=== PATIENT | male | born 1965 | race Two or more races ===

== ENCOUNTER 2025-01-21 08:28 | Inpatient (IN) | payer BC, MEDICAID, SELFPAY ==
[2025-01-21] VITALS (9 sets, daily range): BP systolic 118–153; BP diastolic 63–93; PULSE 69–93; RESP 16–97; TEMP 36.1–37.2; O2SAT 94–99; BMI 46.0; BMI 46.3
--- NOTE | 2025-01-21 08:53 | XR_ITS ---
Examination: Foot, left, 3 views Technique: AP, oblique, lateral views foot, 3 views Date and time of exam: January 21, 2025, 0901 hours INDICATIONS: Nonhealing wound first digit 4 months, diabetes history. FINDINGS: Prominent bone destruction involving the entire distal phalanx first digit No fracture No foreign body IMPRESSION: Prominent osteomyelitis distal phalanx first digit
--- NOTE | 2025-01-21 08:54 | PD.EDRME ---
Rapid Medical Screening Exam RME Arrival date/time: 01/21/25 08:28 59-year-old male presents to the emergency dept today stating that he was seen by podiatry and was referred to the ER for osteomyelitis Patient had outpatient x-ray which showed osteomyelitis and patient been antibiotics which are not helping his infection Chief Complaint: Ankle/Foot Injury Time Seen by Provider: 01/21/25 08:39 Vital signs: Vital Signs Temperature 98.5 F 01/21/25 08:51 Pulse Rate 93 01/21/25 08:51 Respiratory Rate 19 01/21/25 08:51 Blood Pressure 153/84 H 01/21/25 08:51 Pulse Oximetry (%) 99 01/21/25 08:51 Oxygen Delivery Method Room Air 01/21/25 08:51 Vital signs reviewed by provider: Yes Exam: tender swelling left great toe Clinical Impression: Lab work and imaging ordered
[2025-01-21 09:27] LABS: Lactate (Lactic Acid) 1.0 mMol/L (0.4-2.0)
[2025-01-21 09:35] LABS: Basophils # (Auto) 0.0 Thou/mm3 (0.0-0.2); Basophils % (Auto) 0 % (0-2.5); Eosinophils # (Auto) 0.1 Thou/mm3 (0.0-0.5); Eosinophils % (Auto) 2 % (0-10); Hematocrit 45.9 % (41.0-53.0); Hemoglobin 15.1 g/dL (13.5-16.0); Immature Granulocytes Auto 0.01 Thou/mm3 (0.00-0.00); Lymphocytes # (Auto) 2.2 Thou/mm3 (1.0-4.8); Lymphocytes % (Auto) 34 % (10-50); Mean Corpuscular HGB Conc 32.9 g/dl (31.0-37.0); Mean Corpuscular Hemoglobin 30.6 pg (25.0-35.0); Mean Corpuscular Volume 93 fL (80-100); Monocytes # (Auto) 0.5 Thou/mm3 (0.0-0.8); Monocytes % (Auto) 8 % (0-12); Neutrophils # (Auto) 3.6 Thou/mm3 (1.8-7.7); Neutrophils % (Auto) 56 % (37-80); Nucleated Red Blood Cell # 0.00 Thou/mm3 (0.00-0.00); Nucleated Red Blood Cell % 0 /100 WBC (0); Platelet Count 198 Thou/mm3 (140-440); RDW Standard Deviation 43.8 fL (35.1-43.9); Red Blood Count 4.94 Miln/mm3 (4.50-5.90); White Blood Count 6.4 Thou/mm3 (3.8-10.6)
[2025-01-21 09:46] LABS: INR 1.0 (0.9-1.3); Partial Thromboplastin Time 26.7 Seconds (22.0-36.0); Prothrombin Time 11.0 Seconds (9.0-12.2)
[2025-01-21 09:55] LABS: Alanine Aminotransferase 24 U/L (10-49); Albumin, Serum 4.4 gm/dL (3.5-5.0); Albumin/Globulin Ratio 1.2 (1.2-2.2); Alkaline Phosphatase 71 U/L (46-116); Anion Gap 6 (7-16); Aspartate Amino Transferase 24 U/L (0-34); BUN/Creatinine Ratio 16 Ratio (12-20); Bilirubin,Total 0.4 mg/dL (0.3-1.2); Blood Urea Nitrogen 13 mg/dL (9-23); C-Reactive Protein < 0.5 mg/dL (0.0-0.9); Calcium 9.0 mg/dL (8.3-10.6); Calcium (Corrected) 9.0 mg/dL (8.5-10.1); Carbon Dioxide 27.7 mMol/L (20.0-31.0); Chloride 104 mMol/L (98-107); Creatinine (Component) 0.8 mg/dL (0.6-1.3); Estimated Creatinine Clearance 143.4 mL/min (>60); Globulin 3.7 gm/dL (2.3-3.5); Glucose 219 mg/dL (74-106); Osmolality,Calculated 282 (275-295); Potassium 4.2 mMol/L (3.4-5.1); Sodium 138 mMol/L (136-145); Total Protein 8.1 gm/dL (5.7-8.2); eGFR > 60 See Note
[2025-01-21 09:56] LABS: Procalcitonin < 0.04 ng/ml (0.0-0.49)
[2025-01-21 10:01] LABS: Sed Rate (ESR) 30 mm/hr (0-20)
--- NOTE | 2025-01-21 10:19 | PC.NURSE ---
Patient came in to ED after being advice by his wound doctor to come to the hospital to start IV antibiotics. Pt's left great toe has dressing, which was removed, toe is swollen, small macerated spot on posterior toe noted. Pt denies any pain to foot stated that he is able to bear weight to foot. Problem with toe started around August after pt had fungus to toe nail. Pt awaiting doctor for evaluation.
--- NOTE | 2025-01-21 11:48 | EDNOTE_ITS ---
ED Skin Abcess FB-RME/HPI General Chief complaint: Ankle/Foot Injury Stated complaint: Dr. Dumas sent pt. for infected toe Time Seen by Provider: 01/21/25 08:39 Arrival date/time: 01/21/25 08:28 Limitations: no limitations RME / HPI RME / HPI narrative: 01/21/25 08:28 59-year-old male presents to the emergency dept today stating that he was seen by podiatry and was referred to the ER for osteomyelitis Patient had outpatient x-ray which showed osteomyelitis and patient been antibiotics which are not helping his infection DR. RITA MATT ED EVALUATION: 59-year-old male with past medical history significant for diabetes and hypertension accompanied by his mother presents to the Emergency Department after being sent in by his data communications technician, Dr. Dumas, for admission. He has swell ing of the first digit of the left foot involving the ventral surface of the toe, ongoing since August 2024. Last dose of antibiotics was taken Thursday or Thursday; oral antibiotics are not helping. He denies nausea or vomiting. No known allergies. No other symptoms reported. No fevers,chills Related Data Previous Rx's ?Medication ?Instructions ?Recorded albuterol sulfate 90 mcg/actuation 2 puff inhalation Q 4HR PRN dyspnea 01/19/17 aerosol inhaler (ProAir HFA) #1 inh inhalational spacing device #1 ea 01/19/17 (Aerochamber with Flowsignal) benzonatate 100 mg capsule 100 mg PO TID PRN cough #30 caps 06/03/20 (Tessalon Perles) azithromycin 250 mg tablet See Rx Instructions PO .COM PLEX #6 09/15/23 (Zithromax Z-Quique) tabs Allergies Allergy/AdvReac Type Severity Reaction Status Date / Time No Known Allergies Allergy Unverified 01/21/25 11:58 Review of Systems Review of Systems Systems Reviewed: All systems reviewed, normal except as documented Past Medical History Past Medical History CARDIAC: Positive Hypercholesterolemia and Hypertension RESPIRATORY: Positive Bronchitis MUSCULOSKELETAL: Positive Osteomyelitis ENDOCRINE: Positive Diabetes Mellitus Type 2 Social History SMOKING STATUS: Never smoker SUBSTANCE USE: does not use ALCOHOL: Never ED Exam General Limitations: Present no limitations General appearance: Present alert and in no apparent distress Head Head exam: Present atraumatic, normocephalic and normal inspection Eye Eye exam: Present normal appearance, PERRL and EOMI ENT ENT exam: Present normal exam, normal oropharynx and mucous membranes moist Neck Neck exam: Present normal inspection, full ROM and trachea midline Chest Chest inspection: Present normal inspection and symmetric chest wall rise Respiratory Respiratory exam: Present normal lung sounds bilaterally Cardiovascular Cardiovascular exam: Present regular rate, normal rhythm and normal heart sounds Abdominal Exam Abdominal exam: Present soft; Absent distention or tenderness Extremities Exam Extremities exam: Present full ROM and other (left first toe swollen with a 4 mm wound on the plantar surface, no erythema/fluctuance/crepitus present, and patient reports no pain) Neurological Exam Neurological exam: Present alert, oriented X3 and CN II-XII intact Psychiatric Psychiatric exam: Present normal affect and normal mood Skin Skin exam: Present warm, dry and normal color (normal color except findings on left first toe as described) Course Quality Measures none Orders Category Date Time Status XR foot comp LT min 3V Stat Exams 01/21/25 08:53 Completed Blood Culture (Lab) Stat Lab 01/21/25 09:15 Received CBC Stat Lab 01/21/25 09:20 Completed CMP [Comprehensive Metabolic Panel] Stat Lab 01/21/25 09:20 Completed CRP [C-Reactive Protein] Stat Lab 01/21/25 09:20 Completed ESR [Sed Rate (ESR)] Stat Lab 01/21/25 09:20 Completed Lactic Acid [Lactate (Lactic Acid)] Stat Lab 01/21/25 09:20 Completed PT [Prothrombin Time with INR] Stat Lab 01/21/25 09:20 Completed PTT [Partial Thromboplastin Time] Stat Lab 01/21/25 09:20 Completed Procalcitonin Stat Lab 01/21/25 09:20 Completed Piper/Tazo Inj [Zosyn Inj] 4.5 gm Med 01/21/25 11:49 Discontinued Sodium Chloride 0.9% (Pop) [NS 0.9% mini bag] 100 ml IV X1 Vancomycin Inj 2,000 mg Med 01/21/25 12:00 Discontinued Sodium Chloride 0.9% 500 ml [Ns] 500 ml IV X1 Vancomycin Pharmacy to Dose Med 01/21/25 11:49 Discontinued 1 each IV X1 PRN Vital Signs Vital signs: Vital Signs Temperature 98.5 F 01/21/25 08:51 Pulse Rate 93 01/21/25 08:51 Respiratory Rate 19 01/21/25 08:51 Blood Pressure 153/84 H 11/22/25 08:51 Pulse Oximetry (%) 99 01/21/25 08:51 Oxygen Delivery Method Room Air 01/21/25 08:51 Skin / Abscess / Foreign Body [facility] Narrative MDM Narrative:: INinfa am scribing for and in the presence of Dr. Acosta. 59-year-old male sent by podiatry for foot evaluation and likely admission. Left first toe swollen since August with recent antibiotic use. Concern for failure of outpatient treatment .concern for osteomyelitis, nonhealing diabetic foot ulcer, among others. Patient nonseptic nontoxic. No evidence of necrotizing skin infection. Provided patient with broad-spectrum antibiotics, ordered labs and blood cultures. Labs with elevated ESR. X-ray of the foot with evidence of osteomyelitis. Consult hospital team kindly accepted patient for admission. Patient data External records reviewed:: [facility] previous records Clinical information provided by:: patient and parent Social determinants that could affect healthcare access:: none Patient has the following chronic illnesses:: History of diabetes and hypertension. How is presenting disease/condition affected by chronic disease/condition?: exacerbated by Evaluation data The following diagnostics were reviewed and interpreted by me:: lab results and radiology exam(s) Lab and/or radiology exams considered but not ordered:: none Interpretation Summary: See MDM narrative above. RADIOLOGY Procedure(s): XR foot comp LT min 3V Accession Number(s): [id number] cc: Ijeoma (CURTIS),Stanley ACEVEDO; Tarun Sepulveda MD; Alfonso Jiang MD~ Examination: Foot, left, 3 views Technique: AP, oblique, lateral views foot, 3 views Date and time of exam: January 21, 2025, 0901 hours INDICATIONS: Nonhealing wound first digit 4 months, diabetes history. FINDINGS: Prominent bone destruction involving the entire distal phalanx first digit No fracture No foreign body IMPRESSION: Prominent osteomyelitis distal phalanx first digit Dictated By: Alfonso Jiang MD Medications / Prescriptions Medications or Prescriptions considered but not ordered:: none Medication administrations:: Medication Administration History Acetaminophen (Acetaminophen 325 Mg Tablet) 650 mg PO Q6H PRN PRN Reason: Fever >100.4 and pain 1-3 Stop: 02/20/25 12:28 Dextrose (Dextrose 50%-Water Inj 50 Ml Syringe) 25 ml IV Q15MIN PRN PRN Reason: BG 50-70 responsive npo pt Stop: 02/20/25 12:39 Dextrose (Dextrose 50%-Water Inj 50 Ml Syringe) 50 ml IV Q15MIN PRN PRN Reason: BG <50 OR BG <70 & pt unresponsive Stop: 02/20/25 12:39 Enoxaparin Sodium (Enoxaparin Sod Inj 40 Mg/0.4 Ml Syringe) 40 mg SC QDAY SUNIL Stop: 02/05/25 08:59 Glucagon (Glucagon Inj 1 Mg Vial) 1 mg IM Q15MIN PRN PRN Reason: BG <70, and no IV access Vancomycin/Sodium Chloride (Vancomycin/Ns 1 Gm Ivpb) 200 mls @ 120 mls/hr IV Q2H SUNIL Stop: 01/21/25 16:39 Last Admin: 01/21/25 13:07 Dose: 120 mls/hr Documented By: EMILE Piperacillin/Tazobactam/Dextrose (Zosyn) 3.375 gm in 50 mls @ 12.5 mls/hr IV Q8HR [facility]; Protocol Stop: 01/28/25 21:59 Vancomycin HCl/Dextrose (Vancomycin/D5w 1,250 Mg Ivpb) 250 mls @ 120 mls/hr IV Q8HR SUNIL Stop: 01/28/25 21:59 Insulin Human Lispro (Insulin Lispro (Admelog) 1 Unit/0.01 Ml Unit) 0 unit SC AC [facility]; Protocol Stop: 02/20/25 16:59 Ondansetron HCl (Ondansetron Inj 2 Mg/Ml Inj 2 Ml) 4 mg IVP Q6H PRN; Protocol PRN Reason: NAUSEA OR VOMITING Stop: 02/20/25 12:28 Oxycodone/Acetaminophen (Oxycodone/Apap 5/325 Tablet) 1 tab PO Q6H PRN PRN Reason: PAIN SCALE 4-10(Mod-Sev Stop: 01/26/25 12:28 Pantoprazole Sodium (Pantoprazole 40 Mg Tablet) 40 mg PO QDAY SUNIL Stop: 02/21/25 08:59 Pharmacy Consult (Vancomycin Pharmacy To Dose 1 Each Each) 1 each IV QDAY PRN PRN Reason: PROTOCOL Stop: 02/21/25 08:59 Sennosides (Senna Tablet) 1 tab PO QDAY PRN; Protocol PRN Reason: constipation Stop: 02/20/25 12:28 Discontinued Medications Piperacillin Sod/Tazobactam (Sod 4.5 gm/ Sodium Chloride) 100 mls @ 200 mls/hr IV X1 ONE; Protocol Stop: 01/21/25 12:18 Last Admin: 01/21/25 12:17 Dose: 200 mls/hr Documented By: KALPESH Vancomycin HCl 2,000 mg/ (Sodium Chloride) 500 mls @ 150 mls/hr IV X1 ONE Stop: 01/21/25 15:19 Insulin Human Lispro (Insulin Lispro (Admelog) 1 Unit/0.01 Ml Unit) 0 unit SC AC SUNIL; Protocol Stop: 02/20/25 16:59 Insulin Human Lispro (Insulin Lispro (Admelog) 1 Unit/0.01 Ml Unit) 0 unit SC AC SUNIL; Protocol Stop: 02/20/25 16:59 Pharmacy Consult (Vancomycin Pharmacy To Dose 1 Each Each) 1 each IV X1 PRN PRN Reason: PROTOCOL Stop: 01/21/25 12:10 see above Consultations Consultation(s) initiated? (list below): Yes Consultation #1 (Physician, Specialty, Details): Discussed test HPI, PMHx, lab, radiology results and/or management with resident working with the hospitalist. Will admit for further evaluation and management. Accepts patient for admission. Time: 12:10 Diagnosis Skin/Abscess Differential Diagnosis: other (cellulitis, osteomyelitis, and di abetic foot infection) Most likely diagnosis given after review of the tests above:: Osteomyelitis , failure of outpatient treatment Admission Indicated Admission indicated?: not indicated Admission Request Was there a request for admission?: Yes Admission Attestation Admission request attestation: Discussed case with Team B from Hospitalist service regarding admission. Discussed patients ED course, exam findings, labs, and radiology results. The Hospitalist [agrees] to accept the patient for admission. Disposition Plan Disposition Plan: Admit Critical Care Time Critical Care Time Critical Care Time: Yes Total Critical Care Time (min.): 36 Attestation: Total critical care time: Approximately?36?minutes Due to a high probability of clinically significant, life threatening deterioration, the patient required my highest level of preparedness to intervene emergently and I personally spent this critical care time directly and personally managing the patient. This critical care time included obtaining a history; examining the patient; pulse oximetry; ordering and review of studies; arranging urgent treatment with development of a management plan; evaluation of patient's response to treatment; frequent reassessment; and, discussions with other providers. This critical care time was performed to assess and manage the high probability of imminent, life-threatening deterioration that could result in multi-organ failure. It was exclusive of separately billable procedures and treating other patients and teaching time. Please see MDM section and the rest of the note for further information on patient assessment and treatment. Discharge Plan Plan Patient Disposition: Admit Acute Care w/in Hospital Problem List Clinical Impression: Osteomyelitis
[2025-01-21] MEDS: PIPER/TAZO INJ 4.5 GM in SODIUM CHLORIDE 0.9% (POP) 100 ML IV (12:17)
--- NOTE | 2025-01-21 12:46 | ESHP_ITS ---
<Statement entered by Jeremiah Lindsey MD - 01/21/25 17:53> Patient seen and examined at bedside. I discussed and supervised with the technology internship physician who took care of this patient. I personally saw and examined the patient. I agree with most of the assessment and plan. Plan of care discussed with attending Dr. Salmeron. Jeremiah Lindsey MD PGY-2 Documentation for date of: 01/21/25 HPI History of Present Illness History of present illness: 59-year-old male with past medical history of diabetes, hypertension, hyperlipidemia presented from podiatry office for osteomyelitis found on outpatient x-ray. Admitted for osteomyelitis. Patient reported having foot infection since August/2024, following glassine machine tender outpatient for wound cleaning and antibiotics. Patient was started on Keflex on 12/30 and doxycycline on 01/09. The wound initially was swollen up to left lower extremity but has improved much better, now is only to his toe. However, still developed osteomyelitis after being on 2 antibiotics. Patient reported having fungal infection prior to his wound. Denied trauma, fever, chill, cough, chest pain. ED: Vital signs: 128/86 HR 79 RR 18 afebrile 98% RA Labs: WBC 6.4 ESR 30 glucose 219 HA1c 8.8. Pending blood culture Imaging: Foot x-ray showed prominent osteomyelitis of distal phalanx of first digit Meds: Vancomycin and Zosyn Review of Systems Review of Systems Systems Reviewed: All systems reviewed, normal except as documented Past Medical History Social History SMOKING STATUS: Never smoker SUBSTANCE USE: does not use ALCOHOL: Never Exam Vital Signs Temp Pulse Resp BP Pulse Ox O2 Del Method 97.7 F 82 18 150/93 H 97 Room Air 01/21/25 11:21 01/21/25 11:21 01/21/25 11:21 01/21/25 11:21 01/21/25 11:01/21/25 11:21 Narrative Exam GENERAL APPEARANCE: awake and oriented x 3, well-developed, well-nourished HEENT: Normocephalic, atraumatic; pupils equal, round, reactive to light; EOMI; mucous membranes pink, moist; oropharynx clear NECK: Supple, large neck circumference LUNGS: Clear to auscultation bilaterally, breath sound equal bilaterally HEART: Tachycardia; normal S1, S2; no murmur ABDOMEN: No tenderness to palpation; normal BS; soft, no guarding, no rebound. EXTREMITIES: Nonerythematous, edematous left first digit with mild purulent on the plantar side at the pin point lesion 1 mm in diameter. Mild purulent upon expressing, not tenderness. NEUROLOGIC: awake; alert and oriented x3; cranial nerves II-XII grossly intact; no focal sensory or motor deficits PSYCHIATRIC: appropriate mood and affect SKIN: warm, dry, normal color; no rashes Results: Labs 01/22/25 04:55 01/22/25 04:55 Labs: Short CBC 01/21/25 Range/Units 09:20 WBC 6.4 (3.8-10.6) Thou/mm3 Hgb 15.1 (13.5-16.0) g/dL Hct 45.9 (41.0-53.0) % Plt Count 198 (140-440) Thou/mm3 BMP 01/21/25 09:20 Sodium 138 Potassium 4.2 Chloride 104 Carbon Dioxide 27.7 BUN 13 Creatinine 0.8 Glucose 219 H Calcium 9.0 Liver Function 01/21/25 Range/Units 09:20 Total Bilirubin 0.4 (0.3-1.2) mg/dL AST 24 (0-34) U/L ALT 24 (10-49) U/L Alkaline Phosphatase 71 (46-116) U/L Albumin 4.4 (3.5-5.0) gm/dL Quality Measures Quality Measures VTE prophylaxis Medications Home Medications and Allergies Home Medications ?Medication ?Instructions ?Recorded ?Confirmed ?Type doxycycline hyclate 100 mg tablet 100 mg PO .TWICE 01/21/25 History Allergies Allergy/AdvReac Type Severity Reaction Status Date / Time No Known Allergies Allergy Unverified 01/21/25 11:58 Visit Medications Acetaminophen (Acetaminophen 325 Mg Tablet) 650 mg PO Q6H PRN PRN Reason: Fever >100.4 and pain 1-3 Stop: 02/20/25 12:28 Dextrose (Dextrose 50%-Water Inj 50 Ml Syringe) 25 ml IV Q15MIN PRN PRN Reason: BG 50-70 responsive npo pt Stop: 02/20/25 12:39 Dextrose (Dextrose 50%-Water Inj 50 Ml Syringe) 50 ml IV Q15MIN PRN PRN Reason: BG <50 OR BG <70 & pt unresponsive Stop: 02/20/25 12:39 Enoxaparin Sodium (Enoxaparin Sod Inj 40 Mg/0.4 Ml Syringe) 40 mg SC QDAY SUNIL Stop: 02/05/25 08:59 Glucagon (Glucagon Inj 1 Mg Vial) 1 mg IM Q15MIN PRN PRN Reason: BG <70, and no IV access Vancomycin HCl 2,000 mg/ (Sodium Chloride) 500 mls @ 150 mls/hr IV X1 ONE Stop: 01/21/25 15:19 Insulin Human Lispro (Insulin Lispro (Admelog) 1 Unit/0.01 Ml Unit) 0 unit SC AC SUNIL; Protocol Stop: 02/20/25 16:59 Insulin Human Lispro (Insulin Lispro (Admelog) 1 Unit/0.01 Ml Unit) 0 unit SC AC SUNIL; Protocol Stop: 02/20/25 16:59 Insulin Human Lispro (Insulin Lispro (Admelog) 1 Unit/0.01 Ml Unit) 0 unit SC AC SUNIL; Protocol Stop: 02/20/25 16:59 Ondansetron HCl (Ondansetron Inj 2 Mg/Ml Inj 2 Ml) 4 mg IVP Q6H PRN; Protocol PRN Reason: NAUSEA OR VOMITING Stop: 02/20/25 12:28 Oxycodone/Acetaminophen (Oxycodone/Apap 5/325 Tablet) 1 tab PO Q6H PRN PRN Reason: PAIN SCALE 4-10(Mod-Sev Stop: 01/26/25 12:28 Pantoprazole Sodium (Pantoprazole 40 Mg Tablet) 40 mg PO QDAY SUNIL Stop: 02/21/25 08:59 Sennosides (Senna Tablet) 1 tab PO QDAY PRN; Protocol PRN Reason: constipation Stop: 02/20/25 12:28 Discontinued Medications Piperacillin Sod/Tazobactam (Sod 4.5 gm/ Sodium Chloride) 100 mls @ 200 mls/hr IV X1 ONE; Protocol Stop: 01/21/25 12:18 Last Admin: 01/21/25 12:17 Dose: 200 mls/hr Pharmacy Consult (Vancomycin Pharmacy To Dose 1 Each Each) 1 each IV X1 PRN PRN Reason: PROTOCOL Stop: 01/21/25 12:10 Assessment & Plan Plan 59-year-old male with past medical history of diabetes, hypertension, hyperlipidemia presented from podiatry office for osteomyelitis found on outpatient x-ray. Admitted for osteomyelitis. #Osteomyelitis of left foot #Outpatient treatment failure Foot x-ray showed prominent osteomyelitis of distal phalanx of first digit. Patient reported having foot infection since August/2024, following glassine machine tender outpatient for wound cleaning and antibiotics. Patient was started on Keflex on 12/30 and doxycycline on 01/09. The wound initially was swollen up to left lower extremity but has improved much better, now is only to his toe. However, still developed osteomyelitis after being on 2 antibiotics. Patient reported having fungal infection prior to his wound. Denied trauma, fever, chill. Plan: -Pending blood culture -Consult ID, Dr. Manzo, appreciate rec. -Continue Zosyn, Vanc #Type 2 Diabetes HA1c 8.8 Plan: -Glucose check q6hr -SSI q4hr -Daily weight, Strict I&Os -Dietitian referral -Diet carb consistent diet Health Maintenance: Code status: Full DVT prophylaxis: Lovenox GI prophylaxis: None Diet: Carb consistent renal Wells: None Lines: PIV Supplemental O2: None Disposition: Tele bed Assessment and plan discussed with my attending physician Dr. Salmeron and Dr. Lindsey(PGY-2). Dr. De Dios (PGY-1) ? residential glazier Attending Provider Attestation/Addendum I have seen and examined the patient. I was physically present for the epstein portions of the services provided including history, physical exam, diagnosis, treatment plans and orders. I agree with assessment and plan of care as documented by residents. After examination of the patient and review of the clinical data I feel that this patient needs admission to the hospital for further treatment/evaluation. Even though this this note was carefully revised there may still be minor errors in superintendent geophysical laboratory due to voice recognition software. Sarah Salmeron MD
[2025-01-21] MEDS: VANCOMYCIN/NS 1 GM IVPB 200 ML IV ×2 (13:07→15:36)
[2025-01-21 13:50] LABS: Glucose Estimated Average 206 mg/dL (80-131); Hemoglobin A1C 8.8 % Hgb (4.8-6.0)
[2025-01-21] MEDS: VANCOMYCIN/D5W 1,250 MG IVPB 250 ML 120 MG IV (21:51)
[2025-01-21] MEDS: PIPER/TAZO 3.375 GM PREMIX 3.375 GM/50 ML BAG IV (22:55)
[2025-01-22] VITALS (7 sets, daily range): BP systolic 118–128; BP diastolic 78–87; PULSE 63–88; RESP 17–97; TEMP 36.1–36.6; O2SAT 93–96
[2025-01-22 05:50] LABS: Basophils # (Auto) 0.0 Thou/mm3 (0.0-0.2); Basophils % (Auto) 1 % (0-2.5); Eosinophils # (Auto) 0.2 Thou/mm3 (0.0-0.5); Eosinophils % (Auto) 3 % (0-10); Hematocrit 43.2 % (41.0-53.0); Hemoglobin 14.6 g/dL (13.5-16.0); Immature Granulocytes Auto 0.01 Thou/mm3 (0.00-0.00); Lymphocytes # (Auto) 2.0 Thou/mm3 (1.0-4.8); Lymphocytes % (Auto) 36 % (10-50); Mean Corpuscular HGB Conc 33.8 g/dl (31.0-37.0); Mean Corpuscular Hemoglobin 31.7 pg (25.0-35.0); Mean Corpuscular Volume 94 fL (80-100); Monocytes # (Auto) 0.6 Thou/mm3 (0.0-0.8); Monocytes % (Auto) 11 % (0-12); Neutrophils # (Auto) 2.8 Thou/mm3 (1.8-7.7); Neutrophils % (Auto) 50 % (37-80); Nucleated Red Blood Cell # 0.00 Thou/mm3 (0.00-0.00); Nucleated Red Blood Cell % 0 /100 WBC (0); Platelet Count 183 Thou/mm3 (140-440); RDW Standard Deviation 44.9 fL (35.1-43.9); Red Blood Count 4.61 Miln/mm3 (4.50-5.90); White Blood Count 5.6 Thou/mm3 (3.8-10.6)
[2025-01-22] MEDS: PIPER/TAZO 3.375 GM PREMIX 3.375 GM/50 ML BAG IV ×3 (05:51→21:31)
[2025-01-22] MEDS: VANCOMYCIN/D5W 1,250 MG IVPB 250 ML 120 MG IV ×3 (05:51→21:31)
[2025-01-22 06:15] LABS: Alanine Aminotransferase 19 U/L (10-49); Albumin, Serum 4.0 gm/dL (3.5-5.0); Albumin/Globulin Ratio 1.3 (1.2-2.2); Alkaline Phosphatase 59 U/L (46-116); Anion Gap 9 (7-16); Aspartate Amino Transferase 22 U/L (0-34); BUN/Creatinine Ratio 11 Ratio (12-20); Bilirubin,Total 0.7 mg/dL (0.3-1.2); Blood Urea Nitrogen 10 mg/dL (9-23); Calcium 8.7 mg/dL (8.3-10.6); Calcium (Corrected) 8.7 mg/dL (8.5-10.1); Carbon Dioxide 27.2 mMol/L (20.0-31.0); Chloride 103 mMol/L (98-107); Creatinine (Component) 0.9 mg/dL (0.6-1.3); Estimated Creatinine Clearance 128.1 mL/min (>60); Globulin 3.2 gm/dL (2.3-3.5); Glucose 179 mg/dL (74-106); Magnesium 1.9 mg/dL (1.6-2.6); Osmolality,Calculated 280 (275-295); Phosphorous 3.9 mg/dL (2.4-5.1); Potassium 3.9 mMol/L (3.4-5.1); Sodium 139 mMol/L (136-145); Total Protein 7.2 gm/dL (5.7-8.2); eGFR > 60 See Note
[2025-01-22] MEDS: INSULIN LISPRO (AdmeLOG) 1 UNIT/0.01 ML UNIT SC ×3 (07:42→17:12)
[2025-01-22] MEDS: ENOXAPARIN SOD INJ 40 MG/0.4 ML SYRINGE SC (08:42)
[2025-01-22] MEDS: PANTOPRAZOLE 40 MG TABLET PO (08:42)
--- NOTE | 2025-01-22 08:51 | ESPR_ITS ---
<Statement entered by Jeremiah Lindsey MD - 01/22/25 16:29> Patient seen and examined at bedside. I discussed and supervised with the internal grinder set up operator physician who took care of this patient. I personally saw and examined the patient. I agree with most of the assessment and plan. Plan of care discussed with attending Dr. Ding. Jeremiah Lindsey MD PGY-2 Documentation for date of: 01/22/25 Subjective Subjective Interval history: Patient felt well today. Wound care nurse applied dressing. Minimal purulent on dressing. ID, Dr. Manzo, consulted, will see patient on Thursday, appreciate recs. ?Blood culture 01/21 no growth to date. Currently on Vanc and Zosyn. Surgery, Dr. Pandey, consulted, appreciate recs. Pending arterial duplex US. Exam Vital Signs Temp Pulse Resp BP Pulse Ox O2 Del Method 97.0 F 84 19 128/80 95 Room Air 01/22/25 08:00 01/22/25 08:00 01/22/25 08:00 01/22/25 08:00 01/22/25 08:00 01/22/25 08:00 Narrative Exam GENERAL APPEARANCE: awake and oriented x 3, well-developed, well-nourished HEENT: Normocephalic, atraumatic; pupils equal, round, reactive to light; EOMI; mucous membranes pink, moist; oropharynx clear NECK: Supple, large neck circumference LUNGS: Clear to auscultation bilaterally, breath sound equal bilaterally HEART: Tachycardia; normal S1, S2; no murmur ABDOMEN: No tenderness to palpation; normal BS; soft, no guarding, no rebound. EXTREMITIES: Nonerythematous, edematous left first digit with mild purulent on the plantar side at the pin point lesion 1 mm in diameter. Mild purulent upon expressing, not tenderness. NEUROLOGIC: awake; alert and oriented x3; cranial nerves II-XII grossly intact; no focal sensory or motor deficits PSYCHIATRIC: appropriate mood and affect SKIN: warm, dry, normal color; no rashes Objective Labs 01/23/25 05:15 01/23/25 05:15 Labs: Laboratory Results - last 24 hr 01/21/25 01/22/25 09:20 04:55 WBC 6.4 5.6 RBC 4.94 4.61 Hgb 15.1 14.6 Hct 45.9 43.2 MCV 93 94 MCH 30.6 31.7 MCHC 32.9 33.8 RDW Std Deviation 43.8 44.9 H Plt Count 198 183 Neut % (Auto) 56 50 Lymph % (Auto) 34 36 [place] % (Auto) 8 11 Eos % (Auto) 2 3 Baso % (Auto) 0 1 Neut # (Auto) 3.6 2.8 Lymph # (Auto) 2.2 2.0 [place] # (Auto) 0.5 0.6 Eos # (Auto) 0.1 0.2 Baso # (Auto) 0.0 0.0 Immature Gran # (Auto) 0.01 H 0.01 H Absolute Nucleated RBC 0.00 0.00 Immature Gran % 0 0 Nucleated RBC % 0 0 ESR 30 H PT 11.0 INR 1.0 APTT 26.7 Sodium 138 139 Potassium 4.2 3.9 Chloride 104 103 Carbon Dioxide 27.7 27.2 Anion Gap 6 L 9 BUN 13 10 Creatinine 0.8 0.9 Estim Creat Clear Calc 143.4 128.1 eGFR > 60 > 60 BUN/Creatinine Ratio 16 11 L Glucose [address] Glu mg/dL 206 H Hemoglobin A1c 8.8 H Calculated Osmolality 282 280 Lactic Acid 1.0 Calcium 9.0 8.7 Corrected Calcium 9.0 8.7 Phosphorus 3.9 Magnesium 1.9 Total Bilirubin 0.4 0.7 AST 24 22 ALT 24 19 Alkaline Phosphatase 71 59 C-Reactive Prot, Quant < 0.5 Total Protein 8.1 7.2 Albumin 4.4 4.0 Globulin 3.7 H 3.2 Albumin/Globulin Ratio 1.2 1.3 Procalcitonin < 0.04 Quality Measures Quality Measures VTE prophylaxis Assessment & Plan Assessment Current Active Medications: Generic Name Dose Route Start Last Admin Trade Name Freq PRN Reason Stop Dose Admin Acetaminophen 650 mg 01/21/25 12:29 Acetaminophen 325 Mg Tablet PO 02/20/25 12:28 Q6H PRN Fever >100.4 and pain 1-3 Dextrose 25 ml 01/21/25 12:40 Dextrose 50%-Water Inj 50 Ml Syringe IV 02/20/25 12:39 Q15MIN PRN BG 50-70 responsive npo pt Dextrose 50 ml 01/21/25 12:40 Dextrose 50%-Water Inj 50 Ml Syringe IV 02/20/25 12:39 Q15MIN PRN BG <50 OR BG <70 & pt unresponsive Enoxaparin Sodium 40 mg 01/22/25 09:00 01/22/25 08:42 Enoxaparin Sod Inj 40 Mg/0.4 Ml Syringe SC 02/05/25 08:59 40 mg QDAY SUNIL Administration Glucagon 1 mg 01/21/25 12:40 Glucagon Inj 1 Mg Vial IM Q15MIN PRN BG <70, and no IV access Piperacillin/Tazobactam/Dextrose 3.375 gm in 50 mls @ 12.5 mls/hr 01/21/25 22:00 01/22/25 05:51 Zosyn IV 01/28/25 21:59 12.5 mls/hr Q8HR SUNIL Administration Protocol Vancomycin HCl/Dextrose 250 mls @ 120 mls/hr 01/21/25 22:00 01/22/25 05:51 Vancomycin/D5w 1,250 Mg Ivpb IV 01/28/25 21:59 120 mls/hr Q8HR SUNIL Administration Insulin Human Lispro 0 unit 01/21/25 17:00 01/22/25 07:42 Insulin Lispro (Admelog) 1 Unit/0.01 Ml Unit SC 02/20/25 16:59 1 unit AC SUNIL Administration Protocol Ondansetron HCl 4 mg 01/21/25 12:29 Ondansetron Inj 2 Mg/Ml Inj 2 Ml IVP 02/20/25 12:28 Q6H PRN NAUSEA OR VOMITING Protocol Oxycodone/Acetaminophen 1 tab 01/21/25 12:29 Oxycodone/Apap 5/325 Tablet PO 01/26/25 12:28 Q6H PRN PAIN SCALE 4-10(Mod-Sev Pantoprazole Sodium 40 mg 01/22/25 09:00 01/22/25 08:42 Pantoprazole 40 Mg Tablet PO 02/21/25 08:59 40 mg QDAY SUNIL Administration Pharmacy Consult 1 each 01/22/25 09:00 Vancomycin Pharmacy To Dose 1 Each Each IV 02/21/25 08:59 QDAY PRN PROTOCOL Sennosides 1 tab 01/21/25 12:29 Senna Tablet PO 02/20/25 12:28 QDAY PRN constipation Protocol Plan 59-year-old male with past medical history of diabetes, hypertension, hyperlipidemia presented from podiatry office for osteomyelitis found on outpatient x-ray. Admitted for osteomyelitis. #Osteomyelitis Foot x-ray showed prominent osteomyelitis of distal phalanx of first digit. Patient reported having foot infection since August/2024, following mask former outpatient for wound cleaning and antibiotics. Patient was started on Keflex on 12/30 and doxycycline on 01/09. The wound initially was swollen up to left lower extremity but has improved much better, now is only to his toe. However, still developed osteomyelitis after being on 2 antibiotics. Patient reported having fungal infection prior to his wound. Denied trauma, fever, chill. Plan: -Pending blood culture -ID, Dr. Manzo, consulted, will see patient on Thursday, appreciate recs. ? -Surgery, Dr. Pandey, consulted, appreciate recs. -Pending arterial duplex US. -Continue Zosyn, Vanc #Type 2 Diabetes HA1c 8.8 Plan: -Glucose check q6hr -SSI q4hr -Daily weight, Strict I&Os -Dietitian referral -Diet carb consistent diet Health Maintenance: Code status: Full DVT prophylaxis: Lovenox GI prophylaxis: None Diet: Carb consistent renal Wells: None Lines: PIV Supplemental O2: None Disposition: Tele bed Assessment and plan discussed with my attending physician Dr. Salmeron and Dr. Lindsey(PGY-2). Dr. De Dios (PGY-1) ? physical therapy resident Attending Provider Attestation/Addendum I have seen and examined the patient. I was physically present for the epstein portions of the services provided including history, physical exam, diagnosis, treatment plans and orders. I agree with assessment and plan of care as documented by residents. Even though this this note was carefully revised there may still be minor errors in portal architect due to voice recognition software. Sarah Salmeron MD
--- NOTE | 2025-01-22 10:28 | PC.SS ---
Addendum entered by NICOLE Rogers 01/22/25 14:46: Rounding note: surgery consult, ID consult Original Note: Patient is a 59 year old male presenting to the hospital for osteomyelitis. ASW made face to face contact with patient and patient mother at bedside. Patient allowed for mother to remain in the room. ASW introduced self, role, and reason for visit. Patient confirmed demographic information and stated that he lives at home with his fianc? and children. 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 Miranda at [facility], last appointment was December 19 2024, and pharmacy is [facility]. Patient stated that in case is unable to make medical decisions on his own he would like both his mother Kya Post and Zhang? Patti Yan to make them.? Patient stated that once medically clear he would like to return home and his fianc? will provide transportation. PCP: Dr. Miranda D/c: home Decision maker: Patti (fianc?) [phone] and Kya (mother) [phone]
--- NOTE | 2025-01-22 11:40 | XR_ITS ---
Examination: Arterial duplex lower extremity study. Date and time of exam: January 22, 2025, 1554 hours INDICATIONS: Nonhealing wound first digit 4 months Findings: Duplex sonographic imaging of the lower extremity arteries using B-mode/Escobar scale imaging and Doppler spectral analysis and color flow. Ankle brachial indices have been recorded. Right common femoral artery demonstrates triphasic flow. Right superficial femoral artery demonstrates triphasic flow. Right popliteal artery demonstrates triphasic flow. Right posterior tibial artery demonstrated triphasic flow. Right ankle/brachial index is 1.2. Left common femoral artery demonstrates triphasic flow. Left superficial femoral artery demonstrates triphasic flow. Left popliteal artery demonstrates triphasic flow. Left posterior tibial artery demonstrated triphasic flow. Left ankle/brachial index is 1.1. Impression: Negative for significant obstructive arterial disease
[2025-01-22 13:39] LABS: Vancomycin,Trough 17.9 mcg/mL (5.0-10.0)
[2025-01-23] VITALS: BP 121/97; PULSE 78; RESP 18; TEMP 36.3; O2SAT 93
[2025-01-23 00:23] VITALS: PULSE 91; RESP 18; RESP 94
[2025-01-23 04:00] VITALS: BP 128/75; PULSE 84; RESP 18; TEMP 36.7; O2SAT 93
[2025-01-23] MEDS: VANCOMYCIN/D5W 1,250 MG IVPB 250 ML 120 MG IV (05:19)
[2025-01-23] MEDS: PIPER/TAZO 3.375 GM PREMIX 3.375 GM/50 ML BAG IV (05:19)
[2025-01-23 05:49] LABS: Basophils # (Auto) 0.0 Thou/mm3 (0.0-0.2); Basophils % (Auto) 0 % (0-2.5); Eosinophils # (Auto) 0.1 Thou/mm3 (0.0-0.5); Eosinophils % (Auto) 2 % (0-10); Hematocrit 43.5 % (41.0-53.0); Hemoglobin 14.7 g/dL (13.5-16.0); Immature Granulocytes Auto 0.02 Thou/mm3 (0.00-0.00); Lymphocytes # (Auto) 1.7 Thou/mm3 (1.0-4.8); Lymphocytes % (Auto) 22 % (10-50); Mean Corpuscular HGB Conc 33.8 g/dl (31.0-37.0); Mean Corpuscular Hemoglobin 31.1 pg (25.0-35.0); Mean Corpuscular Volume 92 fL (80-100); Monocytes # (Auto) 0.8 Thou/mm3 (0.0-0.8); Monocytes % (Auto) 10 % (0-12); Neutrophils # (Auto) 5.0 Thou/mm3 (1.8-7.7); Neutrophils % (Auto) 66 % (37-80); Nucleated Red Blood Cell # 0.00 Thou/mm3 (0.00-0.00); Nucleated Red Blood Cell % 0 /100 WBC (0); Platelet Count 168 Thou/mm3 (140-440); RDW Standard Deviation 43.8 fL (35.1-43.9); Red Blood Count 4.73 Miln/mm3 (4.50-5.90); White Blood Count 7.7 Thou/mm3 (3.8-10.6)
[2025-01-23 06:16] LABS: Alanine Aminotransferase 19 U/L (10-49); Albumin, Serum 4.1 gm/dL (3.5-5.0); Albumin/Globulin Ratio 1.2 (1.2-2.2); Alkaline Phosphatase 60 U/L (46-116); Anion Gap 10 (7-16); Aspartate Amino Transferase 21 U/L (0-34); BUN/Creatinine Ratio 10 Ratio (12-20); Bilirubin,Total 0.7 mg/dL (0.3-1.2); Blood Urea Nitrogen 9 mg/dL (9-23); Calcium 8.8 mg/dL (8.3-10.6); Calcium (Corrected) 8.8 mg/dL (8.5-10.1); Carbon Dioxide 24.8 mMol/L (20.0-31.0); Chloride 103 mMol/L (98-107); Creatinine (Component) 0.9 mg/dL (0.6-1.3); Estimated Creatinine Clearance 128.1 mL/min (>60); Globulin 3.3 gm/dL (2.3-3.5); Glucose 192 mg/dL (74-106); Magnesium 1.9 mg/dL (1.6-2.6); Osmolality,Calculated 279 (275-295); Phosphorous 3.1 mg/dL (2.4-5.1); Potassium 4.1 mMol/L (3.4-5.1); Sodium 138 mMol/L (136-145); Total Protein 7.4 gm/dL (5.7-8.2); eGFR > 60 See Note
[2025-01-23 06:46] VITALS: PULSE 88; RESP 18; RESP 96
[2025-01-23 07:45] VITALS: BP 122/76; PULSE 88; RESP 18; TEMP 36.3; O2SAT 94
[2025-01-23] MEDS: INSULIN LISPRO (AdmeLOG) 1 UNIT/0.01 ML UNIT SC (07:47)
--- NOTE | 2025-01-23 09:08 | PC.SS ---
Follow up note: On IV antibiotic. Pending I.D recommendations.
[2025-01-23] MEDS: PANTOPRAZOLE 40 MG TABLET PO (09:19)
[2025-01-23] MEDS: ENOXAPARIN SOD INJ 40 MG/0.4 ML SYRINGE SC (09:20)
--- NOTE | 2025-01-23 10:50 | PD.RESPRO ---
Documentation for date of: 01/23/25 Exam Vital Signs Temp Pulse Resp BP Pulse Ox O2 Del Method 97.4 F 88 18 122/76 94 L Room Air 01/23/25 07:45 01/23/25 07:45 01/23/25 07:45 01/23/25 07:45 01/23/25 07:45 01/23/25 07:45 Objective Labs 01/23/25 05:15 01/23/25 05:15 Labs: Laboratory Results - last 24 hr 01/22/25 01/23/25 13:06 05:15 WBC 7.7 RBC 4.73 Hgb 14.7 Hct 43.5 MCV 92 MCH 31.1 MCHC 33.8 RDW Std Deviation 43.8 Plt Count 168 Neut % (Auto) 66 Lymph % (Auto) 22 [place] % (Auto) 10 Eos % (Auto) 2 Baso % (Auto) 0 Neut # (Auto) 5.0 Lymph # (Auto) 1.7 [place] # (Auto) 0.8 Eos # (Auto) 0.1 Baso # (Auto) 0.0 Immature Gran # (Auto) 0.02 H Absolute Nucleated RBC 0.00 Immature Gran % 0 Nucleated RBC % 0 Sodium 138 Potassium 4.1 Chloride 103 Carbon Dioxide 24.8 Anion Gap 10 BUN 9 Creatinine 0.9 Estim Creat Clear Calc 128.1 eGFR > 60 BUN/Creatinine Ratio 10 L Glucose 192 H Calculated Osmolality 279 Calcium 8.8 Corrected Calcium 8.8 Phosphorus 3.1 Magnesium 1.9 Total Bilirubin 0.7 AST 21 ALT 19 Alkaline Phosphatase 60 Total Protein 7.4 Albumin 4.1 Globulin 3.3 Albumin/Globulin Ratio 1.2 Vancomycin Trough 17.9 H Quality Measures Quality Measures VTE prophylaxis Assessment & Plan Assessment Current Active Medications: Generic Name Dose Route Start Last Admin Trade Name Freq PRN Reason Stop Dose Admin Acetaminophen 650 mg 01/21/25 12:29 Acetaminophen 325 Mg Tablet PO 02/20/25 12:28 Q6H PRN Fever >100.4 and pain 1-3 Dextrose 25 ml 01/21/25 12:40 Dextrose 50%-Water Inj 50 Ml Syringe IV 02/20/25 12:39 Q15MIN PRN BG 50-70 responsive npo pt Dextrose 50 ml 01/21/25 12:40 Dextrose 50%-Water Inj 50 Ml Syringe IV 02/20/25 12:39 Q15MIN PRN BG <50 OR BG <70 & pt unresponsive Enoxaparin Sodium 40 mg 01/22/25 09:00 01/23/25 09:20 Enoxaparin Sod Inj 40 Mg/0.4 Ml Syringe SC 02/05/25 08:59 40 mg QDAY SUNIL Administration Glucagon 1 mg 01/21/25 12:40 Glucagon Inj 1 Mg Vial IM Q15MIN PRN BG <70, and no IV access Piperacillin/Tazobactam/Dextrose 3.375 gm in 50 mls @ 12.5 mls/hr 01/21/25 22:00 01/23/25 05:19 Zosyn IV 01/28/25 21:59 12.5 mls/hr Q8HR SUNIL Administration Protocol Vancomycin HCl/Dextrose 250 mls @ 120 mls/hr 01/21/25 22:00 01/23/25 05:19 Vancomycin/D5w 1,250 Mg Ivpb IV 01/28/25 21:59 120 mls/hr Q8HR SUNIL Administration Protocol Insulin Human Lispro 0 unit 01/21/25 17:00 01/23/25 07:47 Insulin Lispro (Admelog) 1 Unit/0.01 Ml Unit SC 02/20/25 16:59 2 unit AC SUNIL Administration Protocol Ondansetron HCl 4 mg 01/21/25 12:29 Ondansetron Inj 2 Mg/Ml Inj 2 Ml IVP 02/20/25 12:28 Q6H PRN NAUSEA OR VOMITING Protocol Oxycodone/Acetaminophen 1 tab 01/21/25 12:29 Oxycodone/Apap 5/325 Tablet PO 01/26/25 12:28 Q6H PRN PAIN SCALE 4-10(Mod-Sev Pantoprazole Sodium 40 mg 01/22/25 09:00 01/23/25 09:19 Pantoprazole 40 Mg Tablet PO 02/21/25 08:59 40 mg QDAY SUNIL Administration Pharmacy Consult 1 each 01/22/25 09:00 Vancomycin Pharmacy To Dose 1 Each Each IV 02/21/25 08:59 QDAY PRN PROTOCOL Sennosides 1 tab 01/21/25 12:29 Senna Tablet PO 02/20/25 12:28 QDAY PRN constipation Protocol
--- NOTE | 2025-01-23 10:56 | PD.IDPROG ---
Subjective Subjective Interval history: has podiatry at [facility] if he needs amputation. wants that doc to do it. esr 30. crp 0.5, low Exam Vital Signs Temp Pulse Resp BP Pulse Ox O2 Del Method 97.4 F 88 18 122/76 94 L Room Air 01/23/25 07:45 01/23/25 07:45 01/23/25 07:45 01/23/25 07:45 01/23/25 07:45 01/23/25 07:45 Narrative Exam L great toe ulcer noted. pt otherwise well. good sized man Objective - Internal Medicine Labs 01/23/25 05:15 01/23/25 05:15 Labs: Laboratory Results - last 24 hr 01/22/25 01/23/25 13:06 05:15 WBC 7.7 RBC 4.73 Hgb 14.7 Hct 43.5 MCV 92 MCH 31.1 MCHC 33.8 RDW Std Deviation 43.8 Plt Count 168 Neut % (Auto) 66 Lymph % (Auto) 22 [place] % (Auto) 10 Eos % (Auto) 2 Baso % (Auto) 0 Neut # (Auto) 5.0 Lymph # (Auto) 1.7 [place] # (Auto) 0.8 Eos # (Auto) 0.1 Baso # (Auto) 0.0 Immature Gran # (Auto) 0.02 H Absolute Nucleated RBC 0.00 Immature Gran % 0 Nucleated RBC % 0 Sodium 138 Potassium 4.1 Chloride 103 Carbon Dioxide 24.8 Anion Gap 10 BUN 9 Creatinine 0.9 Estim Creat Clear Calc 128.1 eGFR > 60 BUN/Creatinine Ratio 10 L Glucose 192 H Calculated Osmolality 279 Calcium 8.8 Corrected Calcium 8.8 Phosphorus 3.1 Magnesium 1.9 Total Bilirubin 0.7 AST 21 ALT 19 Alkaline Phosphatase 60 Total Protein 7.4 Albumin 4.1 Globulin 3.3 Albumin/Globulin Ratio 1.2 Vancomycin Trough 17.9 H Assessment & Plan A&P Narrative L great toe osteo by imaging report dm II check hiv and hep c and let him go on po doxy 100 bid for a week. his direct customer service representative can extend rx or pursue surgery but epstein may be dm control Time Spent With Patient Time: Total time spent is greater than 50% in coordination of care (as documented) at patient's floor/unit and/or counseling patient:
[2025-01-23 11:20] VITALS: BP 115/80; PULSE 70; RESP 18; TEMP 36.3; O2SAT 95
--- NOTE | 2025-01-23 11:24 | ESCONSULT_ITS ---
RE: STEPHON LOPEZ : 1965 DATE OF CONSULTATION: 01/23/2025 REFERRING PHYSICIAN: Dr. Salmeron. REASON FOR CONSULTATION: Presumed to have osteomyelitis of left great toe. HISTORY OF PRESENT ILLNESS: Patient is diabetic. His A1C was over 10 a couple of months ago, but is now down to 8.8, so he probably could do better, so he needs to improve his diabetic control. His sed rate is just 30. CRP is less than 0.5. Other than his diabetes, there are no other health problems. Never had surgery. ALLERGIES: NONE NOTED. IMMUNIZATIONS: Last tetanus is not known. He does not take a flu shot every year. He has had 2 COVID vaccines and has had pneumococcal vaccination. FAMILY HISTORY: Unremarkable. SOCIAL HISTORY: Lives with his fiancee. There are no smokers in the home. He does not smoke and does not use alcohol or drugs. I did not ask about his work history. PHYSICAL EXAMINATION: On exam, his left great toe is wrapped. I did not examine it. I saw the reports only. ASSESSMENT AND PLAN: His sed rate and CRP are both relatively low, so oral therapy is fine. There was a study published in the [place] Journal of Medicine where iv and po rx were felt to be equivalent but aabout 1/2 of the pts went with their primary docs recs and they were not followed for their rx or outcome . He may have presumed osteomyelitis, but may also be early, so [facility] He has a personal organic chemistry teacher already, so that is fine. He can follow up with that person. There is no need for him to see infectious disease and follow up. I will see him on a p.r.n. basis moving forward. I ordered an HIV and hepatitis C tests. Hopefully, those will be done before he leaves. DT: 11:04:11 TT: 11:23:00 Ref: [id number] - TID: [id number] [facility]
[2025-01-23 11:38] LABS: HIV (1&2) Antibody Rapid Non-Reactive
[2025-01-23 12:14] LABS: Hepatitis C Antibody Non Reactive (Non React)
--- NOTE | 2025-01-23 12:47 | PC.SS ---
Follow up note: On IV antibiotic. Pending I.D recommendations. Pt will return home upon dc.
--- NOTE | 2025-01-23 15:15 | ESDS_ITS ---
<Statement entered by Jaz Jaquez DO - 01/24/25 08:09> I, Jaz Jaquez DO, attest that I was physically present for the epstein portions of the service and evaluated the patient with the resident and I reviewed and discussed the case with the resident and agree with the resident's findings and plans of care as documented above <Statement entered by Luanne Luna MD - 01/23/25 18:58> Patient was seen and examined by me personally. I have reviewed the below documentation by the team resident and agree with its findings. Discharge plan was discussed with the attending, Dr. Jaz Szymanski MD Internal Medicine, PGY-2 Planned Discharge Date 01/23/25 DS: Providers Provider Date of admission: 01/21/25 13:50 Primary care physician: Tarun Sepulveda MD Admitting Provider: Sarah Salmeron MD Attending Provider on Admission: Jaz Jaquez DO Consults: 01/21/25 12:44 Consult to Infectious Diseases Stat Comment: Consulting Provider: Sameer Manzo 01/22/25 08:06 Referral Wound Care Routine Comment: L great toe 01/22/25 11:39 Consult to General Surgery Routine Comment: L toe osteomyelitis Consulting Provider: Doe Sahrma 01/22/25 15:52 Consult to General Surgery Stat Comment: Consulting Provider: Doe Sharma Attending Provider on DC: Edwin Hutchinson DO Discharging Provider: Edwin Hutchinson DO DS: Diagnosis Problem List Completed Was Problem List Reviewed/Reconciled?: Yes Hospital Course Hospital Course Hospital course: Summary: 59-year-old male with past medical history of diabetes, hypertension, hyperlipidemia presented from podiatry office for osteomyelitis found on outpatient x-ray. Admitted for osteomyelitis. Patient received IV antibiotics. Blood Culture was negative. Patient was discharged on p.o. antibiotics per ID recommendations ED course: Vital signs: 128/86 HR 79 RR 18 afebrile 98% RA Labs: WBC 6.4 ESR 30 glucose 219 HA1c 8.8. Pending blood culture Imaging: Left Foot x-ray showed prominent osteomyelitis of distal phalanx of first digit Meds: Vancomycin and Zosyn Hospital Course: Upon admission to the hospital, patient started on IV Zosyn 3.375g q8hr and IV Vancomycin q8hr. Blood Culture was negative for 48hrs x2. US arterial duplex NANCY LE BI was Negative for significant obstructive arterial disease. Per ID recommendations, patient was dicharged with PO doxycycline 100mg bid for 6 weeks per patient's request, patient requesting discharge today. Patient to follow outpatient with cable strander, patient is stable for discharge responded well to hospital treatment. #Osteomyelitis of left foot #Outpatient treatment failure #Type 2 Diabetes mellitus #Hypertension #Hyperlipidemia Instructions: - Follow-up with your cable strander outpatient, continue doxycycline for the infection for 6 weeks - Follow-up with your primary care physician within 1 week for optimal diabetes management, continue Metformin 500mg twice a day and other home medications. - Return to emergency department if your symptoms worsen Assessment and plan discussed with my attending physician Dr. Jaquez and Dr. Luna (PGY-2) Dr. Hutchinson (PGY-1) - Internal medicine resident Status at Discharge Overall status at discharge: patient is progressing back to baseline Time Spent with Patient Time attestation: Total time spent providing and/or coordinating discharge services: Time spent: Greater than 30 minutes Exam Vital Signs Temp Pulse Resp BP Pulse Ox O2 Del Method 97.4 F 70 18 115/80 95 Room Air 01/23/25 11:20 01/23/25 11:20 01/23/25 11:20 01/23/25 11:20 01/23/25 11:20 01/23/25 11:20 Narrative Exam GENERAL APPEARANCE: awake and oriented x 3, well-developed, well-nourished HEENT: Normocephalic, atraumatic; pupils equal, round, reactive to light; EOMI; mucous membranes pink, moist; oropharynx clear NECK: Supple, large neck circumference LUNGS: Clear to auscultation bilaterally, breath sound equal bilaterally HEART: Tachycardia; normal S1, S2; no murmur ABDOMEN: No tenderness to palpation; normal BS; soft, no guarding, no rebound. EXTREMITIES: Nonerythematous, edematous left first digit with mild purulent on the plantar side at the pin point lesion 1 mm in diameter. Mild purulent upon expressing, not tenderness. NEUROLOGIC: awake; alert and oriented x3; cranial nerves II-XII grossly intact; no focal sensory or motor deficits PSYCHIATRIC: appropriate mood and affect SKIN: warm, dry, normal color; no rashes Discharge Plan Plan Patient Disposition: HOME (Self Care) Patient condition on transfer: Stable Care Plan Goals: - Follow-up with your cable strander outpatient, continue doxycycline for the infection for 6 weeks - Follow-up with your primary care physician within 1 week for optimal diabetes management, continue Metformin 500mg twice a day amnd other home medications. - Return to emergency department if your symptoms worsen Prescriptions/Referrals Prescriptions/Med Rec: New doxycycline hyclate 100 mg capsule 100 mg PO BID 42 Days Qty: 84 0RF Continued atorvastatin 40 mg tablet Patient Comments: TAKE ONE TABLET BY MOUTH AT BEDTIME FOR CHOLESTEROL metformin 500 mg tablet Patient Comments: TAKE ONE TABLET BY MOUTH TWICE DAILY lisinopril 10 mg tablet Patient Comments: TAKE ONE TABLET BY MOUTH EVERY DAY FOR BLOOD PRESSURE Discontinued azithromycin [Zithromax Z-Quique] 250 mg tablet See Rx Instructions .ROUTE .COMPLEX Qty: 6 0RF Rx Instructions: For 250 mg dose pack: take 500 mg today (day 1), then 250 mg for 4 days (days 2-5) doxycycline hyclate 100 mg tablet 100 mg PO .TWICE Patient Comments: TAKE ONE TABLET BY MOUTH TWICE DAILY FOR INFECTION Referrals: Tarun Sepulveda MD [Primary Care Provider] Patient/Caregiver Discharge Instructions Discharge Activity: activity as tolerated Education Materials: Osteomyelitis Dc Print Language: Sami Stand Alone Forms: Nakia Award Info., Patient Portal Info Letter Discharge Order Discharge Orders: Discharge (Routine); Ordered 01/23/25 Ordered By: Luanne Luna Quality Discharge Quality Measures VTE prophylaxis
== END 2025-01-23 12:49 | disposition home or self-care (01) | DRG 638 ==
LOC: SERX 12:01 → SERHOLD 13:26 → S3SX 21:43 → SERHOLD 01-23 05:55 → S3SX 01-23 05:55
PROVIDERS: Internal Medicine Infectious Disease; Nurse Practitioner Primary Care; Admitting Provider Student in an Organized Health Care Education/Training Program; Emergency Provider Emergency Medicine; PCP Student in an Organized Health Care Education/Training Program; Visit Provider Internal Medicine
DX: E11.69 Type 2 diabetes mellitus with other specified complication (principal); M86.172 Other acute osteomyelitis, left ankle and foot; Z79.84 Long term (current) use of oral hypoglycemic drugs; I10 Essential (primary) hypertension; E78.5 Hyperlipidemia, unspecified; L08.9 Local infection of the skin and subcutaneous tissue, unspecified
CPT/HCPCS: 36415; 73630; 80053; 80202; 83036; 83605; 83735; 84100; 84145; 85025; 85610; 85652; 85730; 86140; 86703; 86803; 87040; 93922; 96365; 96366; 99283; J1650; J1815; J2543; J3373; A9270